=== PATIENT | female | born 2000 | race African-American/Black ===

== ENCOUNTER 2020-10-03 19:46 | Emergency (ER) | payer OTHER ==
[2020-10-03 20:08] VITALS: BP 127/72
--- NOTE | 2020-10-03 21:15 | ED Physician Documentation ---
PD HPI NVD - Stated complaint Stated Complaint: VOMITING,DIZZY - Chief complaint Chief Complaint: Abd Pain - History obtained from History obtained from: Patient - History of Present Illness Timing - onset: Yesterday Timing - details: Gradual onset, Waxing and waning Pain level now: 2 Associated symptoms: Vaginal bleeding. No: Fever, Abdominal pain Improved by: Other (no ameliorating factors) Worsened by: Other (no exacerbating factors) Recently seen: Not recently seen - Additonal information Additional information: c/o nausea, vomiting since yesterday with lightheadedness/dizziness (description does not suggest vertigo). She started her menses yesterday and she says these symptoms are not unusual for when she has her periods. She says when she first started having periods she was found to be anemic and she think she needed blood transfusion (although she is not certain of this). She had symptoms again today while at work (works at [employer]) and was initially told to go home but then her command recommended she come to ED. Patient is vaccinated against COVID Review of Systems Constitutional: denies: Fever, Chills, Sweats Cardiac: reports: Reviewed and negative Respiratory: reports: Reviewed and negative GI: reports: Nausea, Vomiting. denies: Abdominal Pain : reports: LMP (yesterday), Vaginal bleeding. denies: Dysuria, Frequency, Now EGA Neurologic: reports: Generalized weakness. denies: Focal weakness, Near syncope , Syncope, Headache PD PAST MEDICAL HISTORY - Past Medical History Past Medical History: No - Past Surgical History Past Surgical History: Yes Ortho: Arthroscopic surgery - Present Medications Home Medications: Ambulatory Orders Medication Instructions Recorded Confirmed Ondansetron Odt [Zofran] 4 mg TL Q6H PRN #10 tablet 10/03/20 - Allergies Allergies/Adverse Reactions: Allergies Allergy/AdvReac Type Severity Reaction Status Date / Time No Known Drug Allergies Allergy Verified 10/03/20 20:07 - Social History Does the pt smoke?: No Smoking Status: Never smoker Does the pt drink ETOH?: No Does the pt have substance abuse?: No - Immunizations Immunizations are current?: Yes PD ED PE NORMAL - Vitals Vital signs reviewed: Yes - General General: Alert and oriented X 3, No acute distress, Well developed/nourished - Cardiac Cardiac: No murmur, No gallop, No rub - Respiratory Respiratory: No respiratory distress, Clear bilaterally - Abdomen Abdomen: Soft, Non tender - Derm Derm: Normal color, Warm and dry PD ED PE EXPANDED - Cardiac Cardiac: Tachy, Regular Rhythm Results - Vitals Vitals: Vital Signs - 24 hr 10/03/20 20:02 Temperature 37.2 C Heart Rate 113 H Respiratory 16 Rate Blood Pressure 127/72 O2 Saturation 100 Oxygen O2 Source Room air - Labs Labs: Laboratory Tests 10/03/20 10/03/20 10/03/20 21:05 21:30 21:30 WBC 3.0 L RBC 4.47 Hgb 13.1 Hct 42.7 MCV 95.5 MCH 29.3 MCHC 30.7 L RDW 14.7 Plt Count 196 MPV 11.4 H Neut # (Auto) 1.1 L Lymph # (Auto) 1.3 L [place] # (Auto) 0.5 Eos # (Auto) 0.0 Baso # (Auto) 0.0 Absolute Nucleated RBC 0.00 Nucleated RBC % 0.0 Sodium 139 Potassium 3.9 Chloride 99 L Carbon Dioxide 25 Anion Gap 15.0 H BUN 10 Creatinine 0.6 Estimated GFR (MDRD) 154 Glucose 92 Calcium 9.2 Urine Color YELLOW Urine Clarity CLEAR Urine pH 6.0 Ur Specific [place] >=1.030 H Urine Protein NEGATIVE Urine Glucose (UA) NEGATIVE Urine Ketones >=80 H Urine Occult Blood NEGATIVE Urine Nitrite NEGATIVE Urine Bilirubin NEGATIVE Urine Urobilinogen 0.2 (NORMAL) Ur Leukocyte Esterase NEGATIVE Ur Microscopic Review NOT INDICATED Urine Culture Comments NOT INDICATED Urine HCG, Qual NEGATIVE PD MEDICAL DECISION MAKING - ED course Complexity details: reviewed results, re-evaluated patient, considered differential, d/w patient ED course: nausea, vomiting since yesterday coinciding with her menses. She says she sometimes has similar symptoms with her menses. incidental note of mild leukopenia, otherwise unremarkable blood tests. her UA is concentrated with high specific gravity. results d/w patient and she is comfortable with d/c home. She reports improvement with TL zofran. her presentation is not s/o covid. Departure - Departure Disposition: Home, Self Care Clinical Impression: Vomiting Qualifiers: Vomiting type: unspecified Vomiting Intractability: non-intractable Nausea presence: with nausea Qualified Code(s): R11.2 - Nausea with vomiting, unspecified Condition: Good Instructions: ED Nausea Vomiting Follow-Up: [facility] [Primary Care Provider] - Within 3 Days Prescriptions: Ondansetron Odt [Zofran] 4 mg TL Q6H PRN #10 tablet PRN Reason: Nausea / Vomiting Discharge Date/Time: 10/03/20 22:38
[2020-10-03] MEDS ORDERED: ONDANSETRON ODT 4 MG TABLET TL STA (21:25)
[2020-10-03 21:41] LABS: BASOPHILS % (AUTO) 0.3 %; HCT - HEMATOCRIT 42.7 % (37.0-47.0); HGB - HEMOGLOBIN 13.1 g/dL (12.0-16.0); LYMPHOCYTES # (AUTO) 1.3 10^3/uL (1.5-3.5); LYMPHOCYTES % (AUTO) 44.8 %; MEAN CORPUSCULAR HEMOGLOBIN 29.3 pg (27.0-31.0); MEAN CORPUSCULAR HGB CONC 30.7 g/dL (32.0-36.0); MEAN CORPUSCULAR VOLUME 95.5 fL (81.0-99.0); MEAN PLATELET VOLUME 11.4 fL (7.9-10.8); MONOCYTES # (AUTO) 0.5 10^3/uL (0.0-1.0); MONOCYTES % (AUTO) 15.5 %; NEUTROPHILS # (AUTO) 1.1 10^3/uL (1.5-6.6); NEUTROPHILS % (AUTO) 38.1 %; PLT - PLATELET COUNT 196 10^3/uL (130-450); RED BLOOD COUNT 4.47 10^6/uL (4.20-5.40); RED CELL DISTRIBUTION WIDTH 14.7 % (12.0-15.0)
[2020-10-03 21:45] LABS: CALCIUM 9.2 mg/dL (8.5-10.3); CREATININE 0.6 mg/dL (0.4-1.0); POTASSIUM 3.9 mmol/L (3.5-5.0)
[2020-10-03 21:50] LABS: GLUCOSE, URINE (UA) NEGATIVE (NEGATIVE); KETONES,URINE (UA) >=80 mg/dL (NEGATIVE); LEUKOCYTE ESTERASE, URINE NEGATIVE (NEGATIVE); NITRITE,URINE NEGATIVE (NEGATIVE); OCCULT BLOOD,URINE NEGATIVE (NEGATIVE); PROTEIN,URINE NEGATIVE (NEGATIVE); UROBILINOGEN,URINE 0.2 (NORMAL) E.U./dL (NORMAL)
[2020-10-03 21:53] LABS: BILIRUBIN,URINE NEGATIVE (NEGATIVE); CLARITY,URINE CLEAR (CLEAR); HCG UR QUAL NEGATIVE; ICTOTEST,URINE NEGATIVE
[2020-10-03] MEDS ORDERED: IBUPROFEN 600 MG TABLET PO STA (22:30)
== END 2020-10-03 22:38 | disposition home or self-care (01) ==
LOC: ED 19:46
DX: R11.2 Nausea with vomiting, unspecified (principal); D72.819 Decreased white blood cell count, unspecified; R42 Dizziness and giddiness; R53.1 Weakness
CPT/HCPCS: 36415; 80048; 81003; 81025; 85025; 99283; 99284; A9270; Q0162; 81001; 87086

== ENCOUNTER 2020-12-29 22:19 | Emergency (ER) | payer OTHER ==
--- NOTE | 2020-12-29 22:38 | ED Physician Documentation ---
PD HPI NVD - Stated complaint Stated Complaint: N/V - Chief complaint Chief Complaint: Abd Pain - History obtained from History obtained from: Patient - History of Present Illness Timing - onset: Last night (approximately 24 hours [employer]) Timing - details: Gradual onset Pain level now: 4 Associated symptoms: Abdominal pain. No: Fever Improved by: Laying still Worsened by: Moving, Palpation Similar symptoms before: Has not had sx before Recently seen: Not recently seen - Additonal information Additional information: c/o approximately 24 hours of nausea, vomiting, diarrhea, and abdominal pain. The abdominal pain was initially across lower abdomen but gradually has become diffuse. Denies fever. She is COVID vaccinated. Denies h/o similar symptoms. Review of Systems Constitutional: denies: Fever, Chills, Sweats Cardiac: reports: Reviewed and negative Respiratory: reports: Reviewed and negative GI: reports: Abdominal Pain, Nausea, Diarrhea. denies: Constipation : denies: Dysuria, Frequency, Now EGA Musculoskeletal: denies: Back pain PD PAST MEDICAL HISTORY - Past Medical History Past Medical History: No - Past Surgical History Past Surgical History: Yes Ortho: Arthroscopic surgery - Present Medications Home Medications: Ambulatory Orders Medication Instructions Recorded Confirmed No Known Home Medications 12/29/20 12/29/20 - Allergies Allergies/Adverse Reactions: Allergies Allergy/AdvReac Type Severity Reaction Status Date / Time No Known Drug Allergies Allergy Verified 10/03/20 20:07 - Social History Does the pt smoke?: No Smoking Status: Never smoker Does the pt drink ETOH?: No Does the pt have substance abuse?: No - Immunizations Immunizations are current?: Yes PD ED PE NORMAL - Vitals Vital signs reviewed: Yes - General General: Alert and oriented X 3, No acute distress, Well developed/nourished - HEENT HEENT: Moist mucous membranes - Neck Neck: Supple, no meningeal sign - Cardiac Cardiac: RRR, No murmur - Respiratory Respiratory: No respiratory distress, Clear bilaterally - Abdomen Abdomen: Soft, Non distended PD ED PE EXPANDED - Abdomen Abdomen: Tender to palpation, Generalized/diffuse (TTP greatest in RLQ). No: Rebound, Guarding Results - Vitals Vitals: Vital Signs - 24 hr 12/29/20 12/29/20 12/30/20 22:26 22:28 00:21 Temperature 36.6 C 36.6 C 36.5 C Heart Rate 87 87 81 Respiratory 18 18 17 Rate Blood Pressure 120/91 H 120/89 H 120/72 O2 Saturation 99 99 99 Oxygen O2 Source Room air - Labs Labs: Laboratory Tests 12/29/20 12/29/20 12/29/20 22:33 22:33 22:33 WBC 4.5 L RBC 4.31 Hgb 13.0 Hct 41.6 MCV 96.5 MCH 30.2 MCHC 31.3 L RDW 14.0 Plt Count 199 MPV 11.2 H Neut # (Auto) 2.1 Lymph # (Auto) 1.8 [place] # (Auto) 0.5 Eos # (Auto) 0.0 Baso # (Auto) 0.0 Absolute Nucleated RBC 0.00 Nucleated RBC % 0.0 Sodium 135 Potassium 3.4 L Chloride 99 L Carbon Dioxide 27 Anion Gap 9.0 BUN 8 Creatinine 0.7 Estimated GFR (MDRD) 129 Glucose 98 Calcium 9.4 Total Bilirubin 1.1 H AST 16 ALT 14 Alkaline Phosphatase 37 L Total Protein 8.0 Albumin 4.6 Globulin 3.4 Albumin/Globulin Ratio 1.4 Lipase 24 Urine Color YELLOW Urine Clarity CLEAR Urine pH 6.0 Ur Specific [place] >=1.030 H Urine Protein TRACE Urine Glucose (UA) NEGATIVE Urine Ketones >=80 H Urine Occult Blood LARGE H Urine Nitrite NEGATIVE Urine Bilirubin NEGATIVE Urine Urobilinogen 0.2 (NORMAL) Ur Leukocyte Esterase NEGATIVE Urine RBC 11-25 H Urine WBC 0-3 Ur Squamous Epith Cells MOD Squamous H Urine Bacteria Rare Urine Mucus Few Strands Ur Microscopic Review INDICATED Urine Culture Comments NOT INDICATED Urine HCG, Qual NEGATIVE PD MEDICAL DECISION MAKING - ED course Complexity details: reviewed old records, reviewed results, re-evaluated patient, considered differential, d/w patient ED course: No concerning findings on CBC, ER abdominal panel, UA (hematuria but patient is currently menstruating). She has diffuse tenderness to palpation on abdominal exam, greatest in right lower quadrant. I explained my concern for appendicitis given the description and timing of symptoms as well as the significant tenderness on exam, and thus my recommendation for CT A/P. She considered this but eventually declined CT. We discussed risks/benefits of the test itself as well as risks/benefits of refusing and she expresses understanding but declines at this time. AMA form reviewed and signed. I encouraged her to return at any time for reevaluation, particularly if she worsens in any way or develops new concerning signs/symptoms such as fever Departure - Departure Disposition: 07 Against Medical Advice Clinical Impression: Abdominal pain Qualifiers: Abdominal location: generalized Qualified Code(s): R10.84 - Generalized abdominal pain Condition: Good Instructions: ED Abdominal Pain Female Non-Specific Abdominal Pain Comments: As we discussed, your blood tests do not have any concerning abnormalities (your white blood cell count is a little below normal, but it is higher than when you were last evaluated in the emergency department and overall is just below the normal range; this is a coincident finding regarding your symptoms). I am concerned about the amount of tenderness on your abdominal exam and recommend an abdominal CT scan to look into concerning diagnoses such as appendicitis. You have decided against this test at this time .Please return to the emergency department at any time you want to be reevaluated, particularly if you feel your symptoms are worsening or if new concerning symptoms develop such as fever Discharge Date/Time: 12/30/20 00:31
[2020-12-29 22:46] LABS: GLUCOSE, URINE (UA) NEGATIVE (NEGATIVE); KETONES,URINE (UA) >=80 mg/dL (NEGATIVE); LEUKOCYTE ESTERASE, URINE NEGATIVE (NEGATIVE); NITRITE,URINE NEGATIVE (NEGATIVE); OCCULT BLOOD,URINE LARGE (NEGATIVE); PROTEIN,URINE TRACE mg/dL (NEGATIVE); UROBILINOGEN,URINE 0.2 (NORMAL) E.U./dL (NORMAL)
[2020-12-29 22:47] LABS: BASOPHILS % (AUTO) 0.4 %; CLARITY,URINE CLEAR (CLEAR); EOSINOPHILS % (AUTO) 0.4 %; HCT - HEMATOCRIT 41.6 % (37.0-47.0); LYMPHOCYTES # (AUTO) 1.8 10^3/uL (1.5-3.5); LYMPHOCYTES % (AUTO) 41.1 %; MEAN CORPUSCULAR HEMOGLOBIN 30.2 pg (27.0-31.0); MEAN CORPUSCULAR HGB CONC 31.3 g/dL (32.0-36.0); MEAN CORPUSCULAR VOLUME 96.5 fL (81.0-99.0); MEAN PLATELET VOLUME 11.2 fL (7.9-10.8); MONOCYTES # (AUTO) 0.5 10^3/uL (0.0-1.0); MONOCYTES % (AUTO) 11.5 %; NEUTROPHILS # (AUTO) 2.1 10^3/uL (1.5-6.6); NEUTROPHILS % (AUTO) 46.4 %; PLT - PLATELET COUNT 199 10^3/uL (130-450); RED BLOOD COUNT 4.31 10^6/uL (4.20-5.40); WHITE BLOOD COUNT 4.5 x10^3/uL (4.8-10.8)
[2020-12-29 22:52] LABS: BILIRUBIN,URINE NEGATIVE (NEGATIVE); HCG UR QUAL NEGATIVE; ICTOTEST,URINE NEGATIVE
[2020-12-29 22:57] LABS: ALBUMIN 4.6 g/dL (3.2-5.5); ALBUMIN/GLOBULIN RATIO 1.4 (1.0-2.2); BILIRUBIN,TOTAL 1.1 mg/dL (0.2-1.0); CALCIUM 9.4 mg/dL (8.5-10.3); CREATININE 0.7 mg/dL (0.4-1.0); POTASSIUM 3.4 mmol/L (3.5-5.0)
[2020-12-29 22:59] LABS: BACTERIA,URINE Rare /HPF (None Seen); MUCUS,URINE Few Strands; SQUAMOUS EPITHELIAL CELL,UR MOD Squamous (<= Few); WBC,URINE 0-3 /HPF (0-5)
[2020-12-30 00:23] VITALS: BP 120/72
[2020-12-30] MEDS ORDERED: IOVERSOL 320 100 ML VIAL IVP ONE (00:40)
== END 2020-12-30 00:31 | disposition left against medical advice (07) ==
LOC: ED 22:19
DX: R10.84 Generalized abdominal pain (principal); Z53.29 Procedure and treatment not carried out because of patient's decision for other reasons
CPT/HCPCS: 36415; 80053; 81001; 81003; 81025; 83690; 85025; 87086; 99283

== ENCOUNTER 2021-01-07 00:50 | Emergency (ER) | payer OTHER ==
--- NOTE | 2021-01-07 01:19 | ED Physician Documentation ---
PD HPI ABD PAIN - Stated complaint Stated Complaint: ABD PX - Chief complaint Chief Complaint: Abd Pain - History obtained from History obtained from: Patient - History of Present Illness Timing - onset: How many weeks ago (1.5) Timing - details: Waxing and waning Pain level now: 4 Quality: Pain Location: RLQ, Suprapubic Improved by: Other (no ameliorating factors) Worsened by: Palpation Associated symptoms: Nausea, Vomiting. No: Fever, Diarrhea, Constipation Recently seen: Emergency Dept - Additional information Additional information: T+R from this ED ten days ago for similar symptoms; at that time, she refused CT A/P. [place] but no further evaluation undertaken although given work excuse for rest. she presents at this time due to ongoing symptoms: nausea, intermittent vomiting, RLQ abdominal pain x 1.5-2 weeks Review of Systems Constitutional: reports: Reviewed and negative Cardiac: reports: Reviewed and negative Respiratory: reports: Reviewed and negative GI: reports: Abdominal Pain, Nausea, Vomiting. denies: Abdominal Swelling, Constipation, Diarrhea : denies: Dysuria, Frequency, Now EGA PD PAST MEDICAL HISTORY - Past Medical History Past Medical History: No - Past Surgical History Past Surgical History: Yes Ortho: Arthroscopic surgery HEENT: Tonsil/Adenoidectomy - Present Medications Home Medications: Ambulatory Orders Medication Instructions Recorded Confirmed Ondansetron Odt [Zofran Odt] 4 mg TL Q6H PRN #10 tablet 01/07/21 traMADol [Ultram] 50 mg PO Q4-6H PRN #14 tablet 01/07/21 - Allergies Allergies/Adverse Reactions: Allergies Allergy/AdvReac Type Severity Reaction Status Date / Time No Known Drug Allergies Allergy Verified 01/07/21 01:04 - Social History Does the pt smoke?: No Smoking Status: Never smoker Does the pt drink ETOH?: No Does the pt have substance abuse?: No - Immunizations Immunizations are current?: Yes PD ED PE NORMAL - Vitals Vital signs reviewed: Yes - General General: Alert and oriented X 3, No acute distress, Well developed/nourished - Neck Neck: Supple, no meningeal sign - Cardiac Cardiac: RRR, No murmur - Respiratory Respiratory: No respiratory distress, Clear bilaterally - Abdomen Abdomen: Soft, Non distended, Other (mild RUQ, moderate RLQ tenderness without rebound or guarding) Results - Vitals Vitals: Vital Signs - 24 hr 01/07/21 04:57 Temperature 36.3 C L Heart Rate 80 Respiratory 18 Rate Blood Pressure 118/72 O2 Saturation 98 Oxygen O2 Source Room air - Labs Labs: Laboratory Tests 01/07/21 01/07/21 01/07/21 01:45 01:45 01:49 WBC 3.8 L RBC 4.22 Hgb 12.8 Hct 41.1 MCV 97.4 MCH 30.3 MCHC 31.1 L RDW 14.1 Plt Count 204 MPV 11.1 H Neut # (Auto) 1.3 L Lymph # (Auto) 2.1 [place] # (Auto) 0.4 Eos # (Auto) 0.1 Baso # (Auto) 0.0 Absolute Nucleated RBC 0.00 Nucleated RBC % 0.0 Sodium Potassium Chloride Carbon Dioxide Anion Gap BUN Creatinine Estimated GFR (MDRD) Glucose Calcium Total Bilirubin AST ALT Alkaline Phosphatase Total Protein Albumin Globulin Albumin/Globulin Ratio Lipase Urine Color YELLOW Urine Clarity CLEAR Urine pH 6.0 Ur Specific [place] >=1.030 H Urine Protein NEGATIVE Urine Glucose (UA) NEGATIVE Urine Ketones NEGATIVE Urine Occult Blood NEGATIVE Urine Nitrite NEGATIVE Urine Bilirubin NEGATIVE Urine Urobilinogen 0.2 (NORMAL) Ur Leukocyte Esterase NEGATIVE Ur Microscopic Review NOT INDICATED Urine Culture Comments NOT INDICATED Urine HCG, Qual NEGATIVE 01/07/21 01:49 WBC RBC Hgb Hct MCV MCH MCHC RDW Plt Count MPV Neut # (Auto) Lymph # (Auto) [place] # (Auto) Eos # (Auto) Baso # (Auto) Absolute Nucleated RBC Nucleated RBC % Sodium 136 Potassium 3.8 Chloride 101 Carbon Dioxide 28 Anion Gap 7.0 BUN 9 Creatinine 0.7 Estimated GFR (MDRD) 129 Glucose 97 Calcium 9.3 Total Bilirubin 0.5 AST 17 ALT 14 Alkaline Phosphatase 46 Total Protein 7.5 Albumin 4.3 Globulin 3.2 Albumin/Globulin Ratio 1.3 Lipase 30 Urine Color Urine Clarity Urine pH Ur Specific [place] Urine Protein Urine Glucose (UA) Urine Ketones Urine Occult Blood Urine Nitrite Urine Bilirubin Urine Urobilinogen Ur Leukocyte Esterase Ur Microscopic Review Urine Culture Comments Urine HCG, Qual - Rads (name of study) CT A/P with IV contrast Radiology: Prelim report reviewed, See rad report PD MEDICAL DECISION MAKING - ED course Complexity details: reviewed results, re-evaluated patient, considered differential, d/w patient Departure - Departure Disposition: 01 Home, Self Care Clinical Impression: Pelvic pain Condition: Good Instructions: ED Abdominal Pain Female Non-Specific Abdominal Pain, ED Pelvic Pain [facility] Follow-Up: [facility] [Provider Group] Prescriptions: traMADol [Ultram] 50 mg PO Q4-6H PRN #14 tablet PRN Reason: Pain Ondansetron Odt [Zofran Odt] 4 mg TL Q6H PRN #10 tablet PRN Reason: Nausea / Vomiting Comments: As we discussed, your tests tonight do not show the cause of your symptoms. The CT scan shows a small (7 mm) lesion on your liver which is likely a benign cyst; however, your primary care provider might recommend further testing to further characterize this lesion. Also there is a left ovarian cyst; while ovarian cysts can cause pain, your pain and tenderness are distinctly right-sided, and so the left ovarian cyst is very likely an incidental finding. The ovarian cyst is described as "complex" by the radiologist. Simple cysts typically do not need further testing, but sometimes complex cysts need other tests such as ultrasound for further characterization. As we discussed, further testing, in needed, can be undertaken in the outpatient setting. Prescriptions for tramadol (pain medication) and ondansetron (anti-nausea medication) have been electronically submitted to the [facility] pharmacy in [place]. I am prescribing a short course of narcotic pain medication for you. These are potentially dangerous and addictive medications that should be used carefully. These medications may constipate you. Take an [id number] stool softener (docusate) twice daily with plenty of water while taking these medications. If you go 24 hours without a bowel movement, take [id number] miralax, per package instructions. Do not drink or drive while taking these medications. If you received narcotic or sedating medications while in the emergency department, do not drive for 24 hours. Store this medication in a safe, secure place and out of reach of children. It is a violation of federal law to give or sell this medication to another person or to use in a manner other than prescribed. The ED will not refill narcotic prescriptions, including prescriptions lost or stolen. To dispose of unwanted medications: 1. [facility] [address] in [place] has a medication drop box. They accept prescription medications (in pill form) Tuesday through Tuesday 9:00 a.m. to 5:00 p.m. 2. The [facility] accepts prescription medications (in pill form only) for disposal year round. Call for more information. 3. Contact the [facility] for the next [facility] sponsored prescription drug collection event. , [phone], or [phone]; Forms: Activity restrictions Discharge Date/Time: 01/07/21 04:57
[2021-01-07] MEDS ORDERED: KETOROLAC 30 MG/ML VIAL IVP STA (01:40)
[2021-01-07] MEDS ORDERED: ONDANSETRON 4 MG/2 ML VIAL IVP STA (01:40)
[2021-01-07 01:54] LABS: BASOPHILS % (AUTO) 0.5 %; EOSINOPHILS # (AUTO) 0.1 10^3/uL (0.0-0.7); EOSINOPHILS % (AUTO) 1.6 %; HCT - HEMATOCRIT 41.1 % (37.0-47.0); HGB - HEMOGLOBIN 12.8 g/dL (12.0-16.0); LYMPHOCYTES # (AUTO) 2.1 10^3/uL (1.5-3.5); LYMPHOCYTES % (AUTO) 54.2 %; MEAN CORPUSCULAR HEMOGLOBIN 30.3 pg (27.0-31.0); MEAN CORPUSCULAR HGB CONC 31.1 g/dL (32.0-36.0); MEAN CORPUSCULAR VOLUME 97.4 fL (81.0-99.0); MEAN PLATELET VOLUME 11.1 fL (7.9-10.8); MONOCYTES # (AUTO) 0.4 10^3/uL (0.0-1.0); MONOCYTES % (AUTO) 9.9 %; NEUTROPHILS # (AUTO) 1.3 10^3/uL (1.5-6.6); NEUTROPHILS % (AUTO) 33.8 %; PLT - PLATELET COUNT 204 10^3/uL (130-450); RED BLOOD COUNT 4.22 10^6/uL (4.20-5.40); RED CELL DISTRIBUTION WIDTH 14.1 % (12.0-15.0); WHITE BLOOD COUNT 3.8 x10^3/uL (4.8-10.8)
[2021-01-07] MEDS ORDERED: IOVERSOL 320 100 ML VIAL IVP ONE ×2 (01:56→02:31)
[2021-01-07 02:03] LABS: BILIRUBIN,URINE NEGATIVE (NEGATIVE); GLUCOSE, URINE (UA) NEGATIVE (NEGATIVE); KETONES,URINE (UA) NEGATIVE (NEGATIVE); LEUKOCYTE ESTERASE, URINE NEGATIVE (NEGATIVE); NITRITE,URINE NEGATIVE (NEGATIVE); OCCULT BLOOD,URINE NEGATIVE (NEGATIVE); PROTEIN,URINE NEGATIVE (NEGATIVE); UROBILINOGEN,URINE 0.2 (NORMAL) E.U./dL (NORMAL)
[2021-01-07 02:05] LABS: CLARITY,URINE CLEAR (CLEAR)
[2021-01-07 02:06] LABS: HCG UR QUAL NEGATIVE
[2021-01-07 02:07] LABS: ALBUMIN 4.3 g/dL (3.2-5.5); ALBUMIN/GLOBULIN RATIO 1.3 (1.0-2.2); BILIRUBIN,TOTAL 0.5 mg/dL (0.2-1.0); CALCIUM 9.3 mg/dL (8.5-10.3); CREATININE 0.7 mg/dL (0.4-1.0); POTASSIUM 3.8 mmol/L (3.5-5.0); TOTAL PROTEIN 7.5 g/dL (6.7-8.2)
[2021-01-07] MEDS ORDERED: traMADol 50 MG TABLET PO STA (04:11)
[2021-01-07 04:58] VITALS: BP 118/72
--- NOTE | 2021-01-07 08:01 | CT Report ---
PROCEDURE: Abdomen/Pelvis W INDICATIONS: Abdominal pain, RLQ CONTRAST: IV CONTRAST: Optiray 320 ml: 100 PO CONTRAST: *NO PO CONTRAST TECHNIQUE: After the administration of intravenous contrast, 5 mm thick sections acquired from the diaphragms to the symphysis. 5 mm thick coronal and sagittal reformats were acquired. For radiation dose reducti on, the following was used: automated exposure control, adjustment of mA and/or kV according to melissa ent size. COMPARISON: None. FINDINGS: Inferior chest: No focal consolidation, pleural effusion, or pneumothorax. No cardiomegaly or perica rdial effusion. Gallbladder: The gallbladder is distended with a smooth thin wall. Biliary tree: No intra-or extrahepatic biliary ductal dilatation. Liver: The liver demonstrates normal enhancement, size, and contour. Spleen: Normal enhancement, size and morphology is seen. Pancreas: Normal morphology without masses or inflammatory changes. Adrenals: Normal size without masses. Kidneys/ureters: Normal size and morphology. No solid masses or hydronephrosis. Vasculature: No evidence of aneurysm or other significant vascular pathology. Lymphatic system: No pathologic enlargement by size criteria. GI/mesentery: No evidence of intestinal obstruction. Moderate stool burden in the ascending/transvers e colon. Normal appendix. Peritoneum/Retroperitoneum: No free intraperitoneal gas or large collection. Urinary bladder: Underdistended but grossly unremarkable. Pelvic organs: A 2.9 x 4.4 cm hypoattenuating lesion is seen in the left adnexa, which demonstrates a ttenuation values greater than simple fluid and may reflect a hemorrhagic ovarian cyst. Bones/soft tissues: No significant abnormality. IMPRESSION: 1.Hypoattenuating lesion in the left adnexa as detailed above, which may reflect a hemorrhagic ovaria n cyst. Consider pelvic ultrasound for further evaluation as clinically warranted. Concordant interpretation with preliminary report. Reviewed by: Jayesh Smith MD on 01/07/2021 8:00 AM PDT Approved by: Jayesh Smith MD on 01/07/2021 8:00 AM PDT Station ID: [id number]
== END 2021-01-07 04:57 | disposition home or self-care (01) ==
LOC: ED 00:50
DX: R10.2 Pelvic and perineal pain (principal); R11.2 Nausea with vomiting, unspecified; N83.202 Unspecified ovarian cyst, left side
CPT/HCPCS: 36415; 74177; 80053; 81003; 81025; 83690; 85025; 96374; 96375; 99283; 99284; A9270; Q9967; 81001; 87086

== ENCOUNTER 2021-01-13 08:26 | Outpatient (CLI) | payer OTHER | END 2021-01-13 08:27 | disposition other institution (70) | LOC: EMS 08:26 | DX: N93.9 Abnormal uterine and vaginal bleeding, unspecified (principal) ==

== ENCOUNTER 2021-01-13 09:26 | Emergency (ER) | payer OTHER ==
[2021-01-13 10:27] VITALS: BP 84/75
--- NOTE | 2021-01-13 10:35 | ED Physician Documentation ---
History of Present Illness - Stated complaint Stated Complaint: ABD PX/FEMALE - Chief complaint Chief Complaint: Abd Pain - History obtained from History obtained from: Patient - Additonal information Additional information: Patient comes emergency department chief complaint of ongoing lower abdominal pain. She states that now she has developed vaginal bleeding this morning, although this has resolved by now. She was having spotting for the last couple of weeks and was seen in the emergency department about a week ago at which time she had a CT scan of the abdomen and pelvis, which was unremarkable, other than a benign-appearing liver cyst and a complex left ovarian cyst. The patient had also been seen in the emergency department prior to that visit for similar symptoms. Patient states that today, the pain seemed to get a lot worse and she developed some vaginal bleeding. She soaked a light days pad, but now the bleeding has stopped. The patient states she has pain throughout her low abdomen that wraps around into her back. No dysuria. No fever or chills. The patient states she has not had symptoms like this before. She does have a history of painful menstrual periods, but has never been seen by plaster die maker to be evaluated for endometriosis. Patient states that her periods are fairly regular and that they come at the end of the month. Patient states she had some diarrhea the last couple of days and was nauseated on the way here in the ambulance. No other complaints at this time. Review of Systems Ten Systems: 10 systems reviewed and negative Constitutional: reports: Reviewed and negative Eyes: reports: Reviewed and negative Ears: reports: Reviewed and negative Nose: reports: Reviewed and negative Throat: reports: Reviewed and negative Cardiac: reports: Reviewed and negative Respiratory: reports: Reviewed and negative GI: reports: Abdominal Pain, Nausea, Diarrhea : reports: Vaginal bleeding Skin: reports: Reviewed and negative Musculoskeletal: reports: Reviewed and negative Neurologic: reports: Reviewed and negative Psychiatric: reports: Reviewed and negative Endocrine: reports: Reviewed and negative Immunocompromised: reports: Reviewed and negative PD PAST MEDICAL HISTORY - Past Surgical History Past Surgical History: Yes Ortho: Arthroscopic surgery HEENT: Tonsil/Adenoidectomy - Present Medications Home Medications: Ambulatory Orders Medication Instructions Recorded Confirmed Ondansetron Odt [Zofran Odt] 4 mg TL Q6H PRN #10 tablet 01/07/21 traMADol [Ultram] 50 mg PO Q4-6H PRN #14 tablet 01/07/21 HYDROcod/ACETAM 5/325 [[place] 5/325] 1 - 2 tablet PO Q6H PRN #10 tablet 01/13/21 - Allergies Allergies/Adverse Reactions: Allergies Allergy/AdvReac Type Severity Reaction Status Date / Time No Known Drug Allergies Allergy Verified 01/07/21 01:04 - Social History Does the pt smoke?: No Smoking Status: Never smoker Does the pt drink ETOH?: No Does the pt have substance abuse?: No - Immunizations Immunizations are current?: Yes PD ED PE NORMAL - Vitals Vital signs reviewed: Yes - General General: Alert and oriented X 3, Well developed/nourished, Other (No distress, but patient does appear uncomfortable) - HEENT HEENT: Atraumatic, PERRL, EOMI, Moist mucous membranes - Neck Neck: Supple, no meningeal sign - Cardiac Cardiac: RRR, No murmur - Respiratory Respiratory: No respiratory distress, Clear bilaterally - Abdomen Abdomen: Soft, Non distended, Other (Diffuse moderate tenderness, no rebound or guarding.) - Back Back: No CVA TTP - Derm Derm: Normal color, Warm and dry, No rash - Extremities Extremities: No deformity, No edema, No calf tenderness / cord - Neuro Neuro: Alert and oriented X 3 - Psych Psych: Normal mood, Normal affect Results - Vitals Vitals: Vital Signs - 24 hr 01/13/21 01/13/21 09:35 10:26 Temperature 36.5 C Heart Rate 70 61 Respiratory 15 14 Rate Blood Pressure 101/61 84/75 L O2 Saturation 100 100 Oxygen O2 Source Room air - Rads (name of study) pelvic US Radiology: Prelim report reviewed (ruptured ovarian cyst L) PD MEDICAL DECISION MAKING - ED course Complexity details: reviewed results, re-evaluated patient, considered differential, d/w patient ED course: Patient was treated symptomatically and worked up with labs, urinalysis, and ultrasound of the pelvis. This did demonstrate a ruptured ovarian cyst and good flow. We have discussed follow up with [employer] and the usual indications for return. Departure - Departure Disposition: 01 Home, Self Care Clinical Impression: Ruptured cyst of left ovary Condition: Stable Instructions: Cyst Ruptured Ovarian Tx, ED Cyst Ovarian Follow-Up: Marbin Randall MD [Provider Admit Priv/Credential] - LSIA HASSAN MD [Physician No Access] - Prescriptions: HYDROcod/ACETAM 5/325 [[place] 5/325] 1 - 2 tablet PO Q6H PRN #10 tablet PRN Reason: Pain Comments: Your ultrasound shows a ruptured ovarian cyst today. This is certainly the cause of the pain you are having, As well as the vaginal bleeding. In general, the pain from a ruptured cyst will resolve in 24 to 48 hours. You may take the pain medication as needed. The prescription for this has been electronically transmitted to the [facility] pharmacy. You have been provided with a work note. For further concerns, please follow-up with your primary doctor and women's health. Forms: Activity restrictions Discharge Date/Time: 01/13/21 11:43
[2021-01-13] MEDS ORDERED: KETOROLAC 60 MG/2 ML VIAL IM STA (10:36)
[2021-01-13] MEDS ORDERED: ONDANSETRON ODT 4 MG TABLET TL STA (10:36)
[2021-01-13] MEDS ORDERED: traMADol 50 MG TABLET PO STA (10:37)
--- NOTE | 2021-01-13 12:24 | Ultrasound Report ---
PROCEDURE: Pelvic w/Transvag+Doppler Comp INDICATIONS: pelvic pain, R TECHNIQUE: Real-time scanning was performed of the pelvic organs, with image documentation. Additional endovagi nal scanning was necessary due to incomplete visualization of the adnexal and endometrial structures by transabdominal scanning. COMPARISON: CT abdomen and pelvis 01/07/2021. FINDINGS: There is a small amount of free fluid in the pelvis. 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 No fibroids s een. The endometrium measures 10 mm in combined thickness. Small nabothian cysts. Ovaries: Within normal limits. Blood flow seen in both ovaries. Right ovary measures 4.2 x 2 x 1.8 cm, volume of 15 cc. Left ovary measures 5.6 x 3.4 x 3.3 cm, volume of 33 cc. -Left ovarian cyst complex cyst measuring 2.9 x 2.8 x 2.6 cm. -Left ovarian complex cyst measuring 2.2 x 2.2 x 1.7 cm. IMPRESSION: 1. Bicornuate uterus. Endometrium measures 1 cm. 2. Left ovarian complex cyst measuring 2.9 cm. Suspect hemorrhagic cyst. 3. Left ovarian complex cyst measuring at 2.2 cm. Possibly corpus luteum. 4. Small amount of free fluid in the pelvic cul-de-sac. Follow-up pelvic ultrasound in 6-12 weeks could be performed to reevaluate the left ovarian cyst. Reviewed by: Christian Gutiérrez MD on 01/13/2021 12:23 PM PST Approved by: Christian Gutiérrez MD on 01/13/2021 12:23 PM PST Station ID: [id number]
== END 2021-01-13 11:43 | disposition home or self-care (01) ==
LOC: EDUNIT# → ED 09:26
DX: N83.202 Unspecified ovarian cyst, left side (principal)
CPT/HCPCS: 76830; 76856; 93975; 96372; 99284; A9270; Q0162

== ENCOUNTER 2021-02-11 22:37 | Emergency (ER) | payer OTHER ==
[2021-02-11 23:07] LABS: HCG UR QUAL NEGATIVE; MUDS CUTOFF CONCENTRATIONS CUTOFF CONC BELOW:
[2021-02-11 23:08] LABS: BASOPHILS % (AUTO) 0.5 %; EOSINOPHILS # (AUTO) 0.1 10^3/uL (0.0-0.7); EOSINOPHILS % (AUTO) 2.3 %; HCT - HEMATOCRIT 37.7 % (37.0-47.0); HGB - HEMOGLOBIN 12.2 g/dL (12.0-16.0); LYMPHOCYTES # (AUTO) 1.4 10^3/uL (1.5-3.5); LYMPHOCYTES % (AUTO) 32.4 %; MEAN CORPUSCULAR HGB CONC 32.4 g/dL (32.0-36.0); MEAN CORPUSCULAR VOLUME 95.7 fL (81.0-99.0); MEAN PLATELET VOLUME 11.1 fL (7.9-10.8); MONOCYTES # (AUTO) 0.4 10^3/uL (0.0-1.0); NEUTROPHILS # (AUTO) 2.5 10^3/uL (1.5-6.6); NEUTROPHILS % (AUTO) 55.8 %; PLT - PLATELET COUNT 206 10^3/uL (130-450); RED BLOOD COUNT 3.94 10^6/uL (4.20-5.40); RED CELL DISTRIBUTION WIDTH 13.7 % (12.0-15.0); WHITE BLOOD COUNT 4.4 x10^3/uL (4.8-10.8)
[2021-02-11 23:15] LABS: AMPHETAMINE SCREEN,URINE NEGATIVE (NEGATIVE); BARBITURATE SCREEN,UR NEGATIVE (NEGATIVE); BENZODIAZEPINES SCREEN, URINE NEGATIVE (NEGATIVE); COCAINE SCREEN URINE NEGATIVE (NEGATIVE); METHADONE SCREEN, URINE NEGATIVE (NEGATIVE); METHAMPHETAMINES SCREEN, URINE NEGATIVE (NEGATIVE); OPIATE SCREEN, URINE NEGATIVE (NEGATIVE); OXYCODONE SCREEN, URINE NEGATIVE (NEGATIVE); PROPOXYPHENE SCREEN, URINE NEGATIVE (NEGATIVE); THC CANNABINOID SCREEN, URINE NEGATIVE (NEGATIVE); TRICYCLIC ANTIDEPRESSANT,URINE NEGATIVE (NEGATIVE)
[2021-02-11 23:19] LABS: BUN - BLOOD UREA NITROGEN 8 mg/dL (6-20); CALCIUM 9.5 mg/dL (8.5-10.3); CARBON DIOXIDE - CO2 25 mmol/L (21-32); CHLORIDE 101 mmol/L (101-111); CREATININE 0.6 mg/dL (0.4-1.0); ETOH - ETHANOL < 5.0 mg/dL; GFR - MDRD 154 (>89); GLUCOSE 105 mg/dL (70-100); POTASSIUM 3.7 mmol/L (3.5-5.0); SODIUM 136 mmol/L (135-145)
--- NOTE | 2021-02-11 23:38 | ED Physician Documentation ---
History of Present Illness - Stated complaint Stated Complaint: MHE - Chief complaint Chief Complaint: MHE - History obtained from History obtained from: Patient - Additonal information Additional information: 20yF without prior pertinent pmh p/w depression and suicidal comments to her LPO. patient reports to me she has been stressed about whether she will be able to get leave from the to go home to [place] for the holidays and also had an argument with her significant other neyda. She was feeling upset and so called her LPO and said she wanted to hurt herself. patient states she imme diately regretted saying it, does not have a suicidal plan, and has never had thoughts of suicide before. not currently on psych meds and does not see a psychiatrist, but [place]. Patient denies SI/HI/AVH. d/w patient's LPO Kasi - He reports she called him neyda saying she needed to be locked up or she would kill herself. she was crying and because the matter seemed urgent, he contacted their command and then drove her to [facility] and talked with her. She told him that she's been having issues with her relationship. 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 He states she drinks alcohol underage and has been expressing feelings of depression on and off. [place] he states that she always goes there and says she's fine and nothing's wrong. Then he'll get a call an hour later saying she's leaving work because she's throwing up or something. She frequently comes to the [facility] ED per his report. Review of Systems Ten Systems: 10 systems reviewed and negative Constitutional: denies: Fever, Chills Cardiac: denies: Chest pain / pressure Respiratory: denies: Dyspnea Psychiatric: reports: Depressed. denies: Suicidal, Homicidal, Hallucinations PD PAST MEDICAL HISTORY - Past Medical History Past Medical History: No - Past Surgical History Past Surgical History: Yes Ortho: Arthroscopic surgery HEENT: Tonsil/Adenoidectomy - Present Medications Home Medications: Ambulatory Orders Medication Instructions Recorded Confirmed No Known Home Medications 02/11/21 02/11/21 - Allergies Allergies/Adverse Reactions: Allergies Allergy/AdvReac Type Severity Reaction Status Date / Time No Known Drug Allergies Allergy Verified 02/11/21 22:44 - Social History Does the pt smoke?: No Smoking Status: Never smoker Does the pt drink ETOH?: No Does the pt have substance abuse?: No - Immunizations Immunizations are current?: Yes - POLST Patient has POLST: No PD ED PE NORMAL - Vitals Vital signs reviewed: Yes - General General: Alert and oriented X 3, No acute distress, Well developed/nourished - HEENT HEENT: Atraumatic, PERRL, EOMI - Neck Neck: Supple, no meningeal sign - Cardiac Cardiac: RRR - Respiratory Respiratory: No respiratory distress, Clear bilaterally - Abdomen Abdomen: Non tender, Non distended - Derm Derm: Normal color, Warm and dry - Extremities Extremities: No deformity - Neuro Neuro: Alert and oriented X 3 - Psych Psych: Normal mood, Normal affect, Other (patient denies SI/HI/AVH) Results - Vitals Vitals: Vital Signs - 24 hr 02/11/21 22:40 Temperature 36.4 C L Heart Rate 84 Respiratory 16 Rate Blood Pressure 133/86 H O2 Saturation 100 Oxygen O2 Source Room air - Labs Labs: Laboratory Tests 02/11/21 02/11/21 02/11/21 22:50 23:02 23:02 WBC 4.4 L RBC 3.94 L Hgb 12.2 Hct 37.7 MCV 95.7 MCH 31.0 MCHC 32.4 RDW 13.7 Plt Count 206 MPV 11.1 H Neut # (Auto) 2.5 Lymph # (Auto) 1.4 L [place] # (Auto) 0.4 Eos # (Auto) 0.1 Baso # (Auto) 0.0 Absolute Nucleated RBC 0.00 Nucleated RBC % 0.0 Sodium 136 Potassium 3.7 Chloride 101 Carbon Dioxide 25 Anion Gap 10.0 BUN 8 Creatinine 0.6 Estimated GFR (MDRD) 154 Glucose 105 H Calcium 9.5 Urine HCG, Qual NEGATIVE Urine Opiates Screen NEGATIVE Ur Oxycodone Screen NEGATIVE Urine Methadone Screen NEGATIVE Ur Propoxyphene Screen NEGATIVE Ur Barbiturates Screen NEGATIVE Ur Tricyclics Screen NEGATIVE Ur Phencyclidine Scrn NEGATIVE Ur Amphetamine Screen NEGATIVE U Methamphetamines Scrn NEGATIVE U Benzodiazepines Scrn NEGATIVE Urine Cocaine Screen NEGATIVE U Cannabinoids Screen NEGATIVE Ethyl Alcohol < 5.0 PD MEDICAL DECISION MAKING - ED course ED course: 20yF p/w passive SI, reported to her immediate rehabilitation supervisor on the phone tonight. patient now completely denies any SI/HI/AVH, states she has no active plan, has never attempted to kill herself before, and has had no formal diagnosis of depression. She is not interested in voluntary inpatient psychiatric evaluation at this time. Patient has multiple protective factors including family support, close outpatient follow up including mental healthcare psychiatric and counseling follow up with the [facility]. Confirmed with her and her LPO that she has no access to guns and feels safe going back to the [facility]. patient contracts for safety and will f/u with Dr. Faulkner, [facility] psychiatrist, tomorrow morning for further eval. d/w Kasi, patient's LPO who will communicate this to the medical administrative. strict return precautions discussed. Departure - Departure Disposition: 01 Home, Self Care Clinical Impression: Depression Condition: Stable Instructions: ED Depression Comments: You were seen in the emergency department for evaluation of depressive behavior and concerning statements about self-harm. Since you feel better now and would like to go back to the [facility], I am recommending you follow up with Dr. Faulkner, [facility] psychiatry first thing tomorrow morning. Please return to the emergency department immediately if you have thoughts of suicide, new or worsening symptoms or other concerns. You're not alone Help is available National Suicide Prevention Lifeline Forms: Activity restrictions
[2021-02-12 00:16] VITALS: BP 115/80
== END 2021-02-12 00:25 | disposition home or self-care (01) ==
LOC: ED 22:37
DX: F32.A Depression, unspecified (principal)
CPT/HCPCS: 36415; 80048; 80306; 80320; 81025; 85025; 99283

== ENCOUNTER 2021-06-03 08:00 | Outpatient (CLI) | payer OTHER ==
[2021-06-03 12:14] LABS: BASOPHILS % (AUTO) 0.5 %; HCT - HEMATOCRIT 40.9 % (37.0-47.0); LYMPHOCYTES # (AUTO) 1.7 10^3/uL (1.5-3.5); LYMPHOCYTES % (AUTO) 44.8 %; MEAN CORPUSCULAR HEMOGLOBIN 30.6 pg (27.0-31.0); MEAN CORPUSCULAR HGB CONC 31.8 g/dL (32.0-36.0); MEAN CORPUSCULAR VOLUME 96.2 fL (81.0-99.0); MONOCYTES # (AUTO) 0.3 10^3/uL (0.0-1.0); MONOCYTES % (AUTO) 8.9 %; NEUTROPHILS # (AUTO) 1.7 10^3/uL (1.5-6.6); NEUTROPHILS % (AUTO) 44.5 %; PLT - PLATELET COUNT 219 10^3/uL (130-450); RED BLOOD COUNT 4.25 10^6/uL (4.20-5.40); RED CELL DISTRIBUTION WIDTH 14.1 % (12.0-15.0); WHITE BLOOD COUNT 3.8 x10^3/uL (4.8-10.8)
[2021-06-03 12:27] LABS: ALBUMIN 4.6 g/dL (3.2-5.5); ALBUMIN/GLOBULIN RATIO 1.4 (1.0-2.2); BILIRUBIN,TOTAL 0.7 mg/dL (0.2-1.0); CALCIUM 9.5 mg/dL (8.5-10.3); CREATININE 0.7 mg/dL (0.4-1.0); POTASSIUM 3.9 mmol/L (3.5-5.0)
[2021-06-03 12:30] LABS: HCG,QUALITATIVE BLOOD NEGATIVE
[2021-06-03 12:45] LABS: BILIRUBIN,URINE NEGATIVE (NEGATIVE); GLUCOSE, URINE (UA) NEGATIVE (NEGATIVE); KETONES,URINE (UA) NEGATIVE (NEGATIVE); LEUKOCYTE ESTERASE, URINE NEGATIVE (NEGATIVE); NITRITE,URINE NEGATIVE (NEGATIVE); OCCULT BLOOD,URINE NEGATIVE (NEGATIVE); PH,URINE 7.5 PH (5.0-7.5); PROTEIN,URINE NEGATIVE (NEGATIVE); UROBILINOGEN,URINE 0.2 (NORMAL) E.U./dL (NORMAL)
[2021-06-03 12:46] LABS: CLARITY,URINE CLEAR (CLEAR)
[2021-06-03 12:54] LABS: RBC,URINE 0-5 /HPF (0-5); SQUAMOUS EPITHELIAL CELL,UR MOD Squamous (<= Few); WBC,URINE 0-3 /HPF (0-5)
[2021-06-03 12:55] LABS: BACTERIA,URINE Few /HPF (None Seen)
== END 2021-06-03 23:59 ==
LOC: LAB.N 08:00
PROVIDERS: ATTEND Nurse Practitioner
DX: R10.9 Unspecified abdominal pain (principal)
CPT/HCPCS: 36415; 80053; 81001; 82150; 83690; 84703; 85025; 87086